=== PATIENT | female | born 1955 | race Caucasian/White ===

== ENCOUNTER 2016-12-03 21:54 | Emergency (ER) | payer BC ==
[2016-12-03 22:10] VITALS: BP 148/84
--- NOTE | 2016-12-03 22:20 | UC ---
Complaint Female HPI - HPI Summary HPI Summary: The patient comes in today for: 1. Dysuria: Onset: Today. Palliative/provocative: Urination. Quality: Burning Region: Severity: 0/10 at this time Time: Comes and goes. Associated symptoms: Urinary urgency: Present Urinary frequency: Present. Fevers: None Back pain: None. Antibiotic use last: June 2016 Last UTI: June 2016 * - History Of Current Complaint Chief Complaint: UCGU Stated Complaint: UTI Time Seen by Provider: 12/03/16 22:01 Hx Obtained From: Patient Hx Last Menstrual Period: postmenopausal ?: No - Allergies/Home Medications Allergies/Adverse Reactions: Allergies Allergy/AdvReac Type Severity Reaction Status Date / Time Ciprofloxacin [From Cipro] Allergy Swelling Verified 12/03/16 22:11 PMH/Surg Hx/FS Hx/Imm Hx Previously Healthy: No Endocrine History Of: Denies: Diabetes, Thyroid Disease, Hyperthyroidism, Hypothyroidism, Dyslipidemia Cardiovascular History Of: Denies: Cardiac Disorders, Hypertension, Pacemaker/ICD, Myocardial Infarction , Congestive Heart Failure, Atrial Fibrillation, Deep Vein Thrombosis, Bleeding Disorders Respiratory History Of: Reports: Asthma - Not on medicatons at this time. Denies: COPD, Bronchitis, Pneumonia, Pulmonary Embolism GI/ History Of: Denies: Gastroesophageal Reflux, Ulcer, Gastrointestinal Bleed, Gall Bladder Disease, Kidney Stones, Diverticulitis, Renal Disease, Urosepsis Neurological History Of: Denies: TIA, CVA, Dementia, Seizures, Migraine Psychological History Of: Denies: Anxiety, Depression, Bipolar Disorder, Schizophrenia, Post Traumatic Stress Disorder Cancer History Of: Denies: Lung Cancer, Colorectal Cancer, Breast Cancer, Prostate Cancer, Cervical Cancer Other History Of: Negative For: HIV, Hepatitis B, Hepatitis C, Anticoagulant Therapy - Surgical History Surgical History: Yes Surgery Procedure, Year, and Place: t&a, polupectomy, knee surgery - Family History Known Family History: Positive: Hypertension Negative: Cardiac Disease - Social History Occupation: Employed Full-time Alcohol Use: Occasionally Substance Use Type: None Smoking Status (MU): Never Smoked Tobacco Review of Systems Constitutional: Negative Skin: Negative Eyes: Negative ENT: Negative Respiratory: Negative Cardiovascular: Negative Gastrointestinal: Negative Genitourinary: Dysuria, Frequency, Urgency All Other Systems Reviewed And Are Negative: Yes Physical Exam Triage Information Reviewed: Yes Appearance: Well-Appearing, No Pain Distress, Well-Nourished Vital Signs: Initial Vital Signs Temp 97.0 F 12/03/16 22:02 Pulse 76 12/03/16 22:02 Resp 16 12/03/16 22:02 BP 148/84 12/03/16 22:02 Pulse Ox 99 12/03/16 22:02 Vital Signs Reviewed: Yes Eyes: Positive: Conjunctiva Clear. Negative: Discharge ENT: Positive: Hearing grossly normal. Negative: Pharyngeal erythema, Nasal congestion, Nasal drainage, TM bulging, TM dull, TM red, Tonsillar swelling, Tonsillar exudate Dental: Negative: Gross Decay/Caries @, Dental Fracture @ Neck: Positive: Supple, Nontender, No Lymphadenopathy. Negative: Nuchal Rigidity Respiratory: Positive: Chest non-tender, Lungs clear, No respiratory distress, No accessory muscle use. Negative: Crackles, Wheezing Cardiovascular: Positive: RRR, No Murmur Abdomen Description: Positive: Nontender, No Organomegaly, Soft. Negative: CVA Tenderness (R), CVA Tenderness (L), Distended, Guarding Musculoskeletal: Positive: Strength Intact, ROM Intact, No Edema Neurological: Positive: Alert, Muscle Tone Normal Psychological: Positive: Age Appropriate Behavior, Consolable Skin: Negative: rashes, breakdown Diagnostics - Laboratory Diagnostic Studies Completed/Ordered: Urine screen: Specific gravity: 1.035. WBC:75. Nitirite: (-). Blood: 300. Protein: 500. Glucose: (-) Complaint Female Dx - Differential Dx/Diagnosis Differential Diagnosis/HQI/PQRI: Endometriosis, Ureteral Stone, Urinary Tract Infection Provider Diagnoses: urinary tract infection Discharge - Discharge Plan Condition: Stable Disposition: HOME Patient Education Materials: Urinary Tract Infection in Women (ED) Referrals: Lance Herrera MD [Primary Care Provider] - 1 Week (Please see your primary care provider in a week to see how well you are doing. If you get worse, please be seen sooner in the ER or through us.)
[2016-12-03] MEDS ORDERED: Phenazopyridine TAB* 100 MG PO ONE (22:22)
[2016-12-03] MEDS ORDERED: Sulfamethox/Trimethoprim DS 800/160* TAB PO ONE (22:22)
== END 2016-12-03 22:32 | disposition home or self-care (01) ==
LOC: UCEAST 21:54
DX: N39.0 Urinary tract infection, site not specified (principal); Z88.1 Allergy status to other antibiotic agents
CPT/HCPCS: 81002; 99212; A9270-GY; G0463

== ENCOUNTER 2017-02-27 16:01 | Emergency (ER) | payer BC ==
[2017-02-27 16:40] VITALS: BP 133/84
--- NOTE | 2017-02-27 16:56 | UC ---
Ear Complaint HPI - HPI Summary HPI Summary: gradual onset of loss of hearing in right ear---tried debrox at home with no relief - History of Current Complaint Chief Complaint: UCEar Stated Complaint: EAR CLOGGED Time Seen by Provider: 02/27/17 16:21 Hx Obtained From: Patient Hx Last Menstrual Period: postmenopausal ?: No Onset/Duration: Gradual Onset, Lasting Weeks, Still Present Severity Initially: Mild Severity Currently: Moderate Pain Intensity: 4 Pain Scale Used: 0-10 Numeric Aggravating Factors: Nothing Alleviating Factors: Nothing Associated Signs/Symptoms: Positive: Hearing Loss, Foreign Body Sensation - Allergies/Home Medications Allergies/Adverse Reactions: Allergies Allergy/AdvReac Type Severity Reaction Status Date / Time Ciprofloxacin [From Cipro] Allergy Swelling Verified 12/03/16 22:11 Home Medications: Home Medications Multiple Vitamin [Multi Vitamin] 02/27/17 [History] PMH/Surg Hx/FS Hx/Imm Hx Previously Healthy: No Endocrine History Of: Denies: Diabetes, Thyroid Disease, Hyperthyroidism, Hypothyroidism, Dyslipidemia Cardiovascular History Of: Denies: Cardiac Disorders, Hypertension, Pacemaker/ICD, Myocardial Infarction , Congestive Heart Failure, Atrial Fibrillation, Deep Vein Thrombosis, Bleeding Disorders Respiratory History Of: Reports: Asthma - Not on medicatons at this time. Denies: COPD, Bronchitis, Pneumonia, Pulmonary Embolism GI/ History Of: Denies: Gastroesophageal Reflux, Ulcer, Gastrointestinal Bleed, Gall Bladder Disease, Kidney Stones, Diverticulitis, Renal Disease, Urosepsis Neurological History Of: Denies: TIA, CVA, Dementia, Seizures, Migraine Psychological History Of: Denies: Anxiety, Depression, Bipolar Disorder, Schizophrenia, Post Traumatic Stress Disorder Cancer History Of: Denies: Lung Cancer, Colorectal Cancer, Breast Cancer, Prostate Cancer, Cervical Cancer Other History Of: Negative For: HIV, Hepatitis B, Hepatitis C, Anticoagulant Therapy - Surgical History Surgical History: Yes Surgery Procedure, Year, and Place: t&a, polupectomy, knee surgery - Family History Known Family History: Positive: Hypertension Negative: Cardiac Disease - Social History Occupation: Employed Full-time Lives: With Family Alcohol Use: Weekly Substance Use Type: None Smoking Status (MU): Never Smoked Tobacco Review of Systems Constitutional: Negative Skin: Negative Eyes: Negative ENT: Ear Ache - r Respiratory: Negative Cardiovascular: Negative Gastrointestinal: Negative Genitourinary: Negative Motor: Negative Neurovascular: Negative Musculoskeletal: Negative Neurological: Negative Psychological: Negative All Other Systems Reviewed And Are Negative: Yes Physical Exam Triage Information Reviewed: Yes Appearance: Well-Appearing, No Pain Distress, Well-Nourished Vital Signs: Initial Vital Signs Temp 98.2 F 02/27/17 16:36 Pulse 63 02/27/17 16:36 Resp 18 02/27/17 16:36 BP 133/84 02/27/17 16:36 Pulse Ox 100 02/27/17 16:36 Vital Signs Reviewed: Yes Eye Exam: Normal Eyes: Positive: Conjunctiva Clear ENT Exam: Other ENT: Positive: Normal ENT inspection, Hearing grossly normal, Pharynx normal, TMs normal - after irragation initial assessment both with cerumen impaction R> L. Negative: Nasal congestion, Nasal drainage, Tonsillar swelling, Tonsillar exudate, Trismus, Muffled/hoarse voice Dental Exam: Normal Neck exam: Normal Neck: Positive: Supple, Nontender, No Lymphadenopathy Respiratory Exam: Normal Respiratory: Positive: Chest non-tender, Lungs clear, Normal breath sounds, No respiratory distress, No accessory muscle use Cardiovascular Exam: Normal Cardiovascular: Positive: RRR, No Murmur, Pulses Normal, Brisk Capillary Refill Musculoskeletal Exam: Normal Musculoskeletal: Positive: Strength Intact, ROM Intact, No Edema Neurological Exam: Normal Neurological: Positive: Alert, Muscle Tone Normal Psychological Exam: Normal Re-Evaluation - Re-Evaluation First Eval Change: Improved - large amount of wax from right ear tm wnl , small amount wax left ear--small amont remains tm is mostly visualized pat feels relief-- Ear Complaint Course/Dx - Course Course Of Treatment: avoid soap in ears debox prn per package insert follow with pcp - Differential Dx/Diagnosis Differential Diagnosis/HQI/PQRI: Cerumen Impaction, Otitis Externa, Otitis Media , URI Provider Diagnoses: B/L cerumen impaction resolved Discharge - Discharge Plan Condition: Stable Disposition: HOME Patient Education Materials: Cerumen Impaction (ED) Referrals: Lance Herrera MD [Primary Care Provider] - If Needed
== END 2017-02-27 17:07 | disposition home or self-care (01) ==
LOC: UCEAST 16:01
DX: H61.23 Impacted cerumen, bilateral (principal); J45.909 Unspecified asthma, uncomplicated; Z88.3 Allergy status to other anti-infective agents
CPT/HCPCS: 69209; 99211; G0463

== ENCOUNTER 2018-03-20 15:16 | Emergency (ER) | payer BC, OTHER ==
[2018-03-20 15:33] VITALS: BP 151/76
--- NOTE | 2018-03-20 15:46 | UC ---
Complaint Female HPI - HPI Summary HPI Summary: Patient presents with complaints of one day onset of dysuria. She denies flank, abdominal pain, nausea, vomiting, diarrhea, or hematuria. She reports that she has had a UTI before and these symptoms are similar. - History Of Current Complaint Chief Complaint: UCGU Stated Complaint: PAIN W/ URINATION Time Seen by Provider: 03/20/18 15:25 Hx Obtained From: Patient Hx Last Menstrual Period: post ?: No Onset/Duration: Sudden Onset, Lasting Days Timing: Constant Severity Initially: Mild Severity Currently: Moderate Pain Intensity: 5 Character: Cramping Aggravating Factor(s): Urination Alleviating Factor(s): Nothing Associated Signs And Symptoms: Positive: Negative - Risk Factors Ectopic Risk Factor: Negative - Allergies/Home Medications Allergies/Adverse Reactions: Allergies Allergy/AdvReac Type Severity Reaction Status Date / Time ciprofloxacin [From Cipro] Allergy Intermediate Swelling Verified 03/20/18 15:34 niacin Allergy Intermediate hot Verified 03/20/18 15:34 flushing PMH/Surg Hx/FS Hx/Imm Hx Previously Healthy: Yes Other History Of: Negative For: HIV, Hepatitis B, Hepatitis C, Anticoagulant Therapy - Surgical History Surgical History: Yes Surgery Procedure, Year, and Place: t&a, polupectomy, knee surgery - Family History Known Family History: Positive: Hypertension Negative: Cardiac Disease - Social History Occupation: Retired Lives: Alone Alcohol Use: Weekly Substance Use Type: None Smoking Status (MU): Never Smoked Tobacco Review of Systems Constitutional: Negative Skin: Negative Eyes: Negative ENT: Negative Respiratory: Negative Cardiovascular: Negative Gastrointestinal: Negative Genitourinary: Dysuria Motor: Negative Neurovascular: Negative Musculoskeletal: Negative Neurological: Negative Psychological: Negative Is Patient Immunocompromised?: No All Other Systems Reviewed And Are Negative: Yes Physical Exam Triage Information Reviewed: Yes Appearance: Well-Appearing Vital Signs: Initial Vital Signs Temp 98.2 F 03/20/18 15:27 Pulse 105 03/20/18 15:27 Resp 15 03/20/18 15:27 BP 151/76 03/20/18 15:27 Pulse Ox 100 03/20/18 15:27 Eye Exam: Normal ENT Exam: Normal Neck exam: Normal Neck: Positive: 1 Respiratory Exam: Normal Cardiovascular Exam: Normal Abdominal Exam: Normal Musculoskeletal Exam: Normal Neurological Exam: Normal Psychological Exam: Normal Skin Exam: Normal Complaint Female Dx - Course Course Of Treatment: Patient presents with dysuria, UA + leuks. Patient nontoxic in appearance with normal VS. RX Keflex 500 mg by mouth twice daily for 10 days. Discharge home in stable condition. - Differential Dx/Diagnosis Differential Diagnosis/HQI/PQRI: Urinary Tract Infection Provider Diagnoses: uti Discharge - Sign-Out/Discharge Documenting (check all that apply): Discharge/Admit/Transfer - Discharge Plan Condition: Stable Disposition: HOME Prescriptions: Cephalexin CAP* [Keflex CAP*] 500 mg PO BID #20 cap Patient Education Materials: Urinary Tract Infection in Women (DC) Referrals: Lance Herrera MD [Primary Care Provider] - - Billing Disposition and Condition Condition: STABLE Disposition: HOME
--- NOTE | 2018-03-24 15:28 | PN ---
Progress Note - Progress Note Date of Service: 03/20/18 Note: Patient's urine grew Streptococcus Anginosus Patient placed on Keflex Sensitive to cefepime, likely sensitive to cephalexin Nothing further at this time
== END 2018-03-20 15:42 | disposition home or self-care (01) ==
LOC: UCEAST 15:16
DX: N39.0 Urinary tract infection, site not specified (principal); Z87.440 Personal history of urinary (tract) infections; Z88.1 Allergy status to other antibiotic agents; Z88.8 Allergy status to other drugs, medicaments and biological substances
CPT/HCPCS: 81003; 87077; 87086; 87186; 99212; G0463

== ENCOUNTER 2023-05-08 12:15 | Observation (INO) ==
[2023-05-08 12:57] LABS: Urine Appearance Cloudy; Urine Bilirubin Negative (Negative); Urine Blood Negative (Negative); Urine Color Yellow; Urine Glucose Negative (Negative); Urine Ketones Trace (Negative); Urine Nitrite Negative (Negative); Urine Protein Negative (Negative); Urine Specific Gravity 1.023 (1.002-1.030); Urine Urobilinogen Negative (Negative)
[2023-05-08 13:03] LABS: Urine Bacteria Absent (Absent); Urine Red Blood Cell Trace(0-2/hpf) (Absent); Urine Squamous Epithelial Cell Present (Absent); Urine White Blood Cell 2+(11-20/hpf) (Absent)
[2023-05-08 13:12] LABS: ABS Basophils 0.1 10^3/uL (0.0-0.1); ABS Lymphocytes 1.9 10^3/uL (1.0-4.8); ABS Monocytes 0.5 10^3/uL (0.0-0.9); ABS Neutrophils 4.5 10^3/uL (1.5-7.6); ABS Nucleated RBC 0.01 10^3/ul; Eosinophil % 0.3 %; Hematocrit 41.8 % (35-45); Hemoglobin 14.1 g/dL (11.5-14.3); Lymphocyte % 27.3 %; Mean Corpuscular Hemoglobin 31.5 pg (27-33); Mean Corpuscular Hgb Conc 33.9 g/dL (31-36); Mean Corpuscular Volume 93.1 fL (80-97); Mean Platelet Volume 7.4 fL (7.5-11.2); Nucleated Red Blood Cells % 0.1 /100 WBC (0.0-0.4); Platelet Count 306 10^3/uL (150-450); Red Blood Count 4.48 10^6/uL (3.63-4.92); Red Cell Distribution Width 13.2 % (12-17); White Blood Count 6.9 10^3/uL (3.8-11.8)
[2023-05-08 13:29] LABS: Albumin 4.1 g/dL (3.2-5.2); Albumin/Globulin Ratio 1.3 (1-3); Calcium 9.1 mg/dL (8.6-10.3); Creatinine, Serum 0.95 mg/dL (0.51-0.95); Globulin 3.1 g/dL (2-4); Potassium 3.6 mmol/L (3.5-5.0); Total Bilirubin 0.5 mg/dL (0.2-1.0); Total Protein 7.2 g/dL (6.4-8.9); eGFR CKD-EPI 65.3 (>60)
[2023-05-08 14:59] LABS: High Sensitivity Troponin 1 Hr < 3 pg/mL (<15)
[2023-05-08] MEDS ORDERED: NS 0.9% 1000 ml BAG 1,000 ML IV ONE (18:13)
[2023-05-08] MEDS ORDERED: Iohexol 350 (CONTRAST) 500 ML MDV IV ONE (18:45)
[2023-05-08 22:17] LABS: HDL Cholesterol 75.3 mg/dL
[2023-05-09] MEDS: Carbamide Peroxide 6.5% OTIC 15 ML BTL BOTH EARS SCH ×3 (00:21→20:38)
[2023-05-09] MEDS: Cholecalciferol (VIT D3) 1,000 unit TAB PO SCH (08:53)
[2023-05-09] MEDS: Enoxaparin 40 MG/0.4 ML SYR SUBCUT SCH (14:04)
[2023-05-10] MEDS: Carbamide Peroxide 6.5% OTIC 15 ML BTL BOTH EARS SCH (10:15)
[2023-05-10] MEDS: Cholecalciferol (VIT D3) 1,000 unit TAB PO SCH (10:15)
[2023-05-10] MEDS: Enoxaparin 40 MG/0.4 ML SYR SUBCUT SCH (14:57)
[2023-05-10 16:08] VITALS: BP 135/80
== END 2023-05-10 17:05 | disposition home or self-care (01) ==
LOC: ED 12:15 → EDHOLD 12:15 → SUATTDRO 21:15 → MEDTELE 22:35
PROVIDERS: ADMIT Hospitalist; ATTEND Internal Medicine